=== PATIENT | male | born 1990 | race Caucasian/White ===

== ENCOUNTER 2020-07-29 06:58 | Day surgery (SDC) | payer BC ==
[2020-07-27 14:07] VITALS: BMI 29.0
[2020-07-29 07:43] VITALS: TEMP 98.2
[2020-07-29] MEDS ORDERED: BUPIVACAINE HCL/PF 0.25% (2.5MG/ML) 10 ML VIAL ONE (08:24)
[2020-07-29] MEDS ORDERED: LIDOCAINE HCL 2% (20ML MULTI-DOSE VIAL) ONE (08:24)
[2020-07-29] MEDS ORDERED: MIDAZOLAM HCL 2 MG/2 ML SINGLE DOSE VIAL ONE (08:27)
[2020-07-29] MEDS ORDERED: PROPOFOL 20 ML ONE (08:27)
[2020-07-29] MEDS ORDERED: LIDOCAINE HCL 2% (50ML VIAL) NR ONE (08:36)
[2020-07-29] MEDS ORDERED: KETOROLAC TROMETHAMINE 30 MG/1 ML VIAL ONE (08:45)
[2020-07-29 09:54] VITALS: BP 112/75; PULSE 81
== END 2020-07-29 09:50 | disposition home or self-care (01) ==
LOC: FASU 06:58
PROVIDERS: ATTEND Orthopaedic Surgery Hand Surgery
PROC: 0JBJ0ZZ Excision of Right Hand Subcutaneous Tissue and Fascia, Open Approach (ICD-10-PCS; principal; 2020-07-29 08:42)
DX: M79.5 Residual foreign body in soft tissue (principal)
CPT/HCPCS: 73140-TC-RT-FY